=== PATIENT | female | born 1960 | race Caucasian/White ===

== ENCOUNTER 2021-07-03 00:08 | Emergency (ER) | payer OTHER ==
[~2021-07-03] VITALS: Ht 154.9 cm; Wt 59.0 kg
[2021-07-03 00:25] VITALS: BP 157/90
[2021-07-03] MEDS ORDERED: OMEPRAZOLE DR20 MG PO (00:55)
[2021-07-03] MEDS ORDERED: NAPROXEN500 MG PO (01:01)
== END 2021-07-03 01:25 | disposition home or self-care (01) | DRG 563 ==
LOC: ED 00:08
DX: S93.402A Sprain of unspecified ligament of left ankle, initial encounter (principal); S93.602A Unspecified sprain of left foot, initial encounter; X50.0XXA Overexertion from strenuous movement or load, initial encounter; Y92.009 Unspecified place in unspecified non-institutional (private) residence as the place of occurrence of the external cause